=== PATIENT | female | born 1940 | race Caucasian/White ===

== ENCOUNTER 2021-04-07 13:12 | Inpatient (IN) | payer MEDICARE ==
[~2021-04-07] VITALS: Ht 152.4 cm; Wt 64.1 kg
--- NOTE | 2021-04-07 13:41 | PHYS DOC ---
Past Medical History Past Medical History: Hypertension Past Surgical History: No Surgical History Smoking Status: Never Smoker Alcohol Use: None Drug Use: None General Adult EDM: Chief Complaint: ALTERED MENTAL STATUS HPI: HPI: 81-year-old female with a history of hypertension presents the emergency department complaining of an episode about 90 minutes prior where she was shopping with her family and then she was unable to speak. She describes her symptoms as being unable to get all the words out that she wanted to say. She states that this spontaneously resolved after about 10 minutes and now she feels normal. She never had any weakness, sensory changes or other preceding symptoms. She further denies any recent illness or weakness. She has never had this happen before. She recently had her losartan changed by her primary care physician. She notes that now she is able to talk normally. Her son was with her during this event and reports the patient was having trouble speaking as the patient states. He believes that now the patient is back to her baseline. The patient denies nausea, vomiting, fever, chills, chest pain, shortness of breath, abdominal pain, urinary symptoms, cough, recent trauma, or any other complaints. She is not taking any blood thinning medicines. She does not take a aspirin at home. Heart Score: C/O Chest Pain: No Family History: Family History: Noncontributory Allergies: Allergies: Penicillins Physical Exam: PE: General: Alert and oriented, No acute distress. Eye: Pupils are equal, round and reactive to light, Extraocular movements are intact, Normal conjunctiva. HEENT: Oral mucosa is moist, Normocephalic, Atraumatic. Neck: Supple, Non-tender. Respiratory: Respirations are non-labored, symmetrical expansion. Cardiovascular: Normal rate, Good pulses equal in all extremities, Normal peripheral perfusion. Capillary refill: Less than 2 seconds. Integumentary: Warm, Dry, Intact, No pallor. Neurologic: Orientation: The patient is alert and oriented to person, place, time, and situation. Following commands, speech is fluent, intact comprehension. Cranial Nerves: 2nd: normal; Visual jarrett are full to confrontation. Pupils are equal, round and reactive to light and accommodation. 3rd, 4th & 6th: Extraocular movements are intact without nystagmus. 5th: normal; intact muscles of mastication. Intact to light touch. 7th: normal; no facial asymmetry 8th: normal 9th and 10th: normal; Uvula midline. 11th: normal; Shoulder shrug is symmetric 12th: normal; tongue is midline. Strength: Motor strength is 5/5 in the upper and lower extremities bilaterally. Normal bulk and tone in all four limbs without any evidence of an arm drift. Sensory: Intact to light touch in upper extremities and lower extremities bilaterally. Coordination is intact iorpox-[id number]-expu, fine finger movements, rapidly alternating movements, heel to valle. Psychiatric: Cooperative, Appropriate mood & affect. Current Patient Data: Labs: Laboratory Tests Test 04/07/21 13:23 Glucose (Fingerstick) 118 mg/dL (70-99) H Vital Signs: Vital Signs Date Time Temp Pulse Resp B/P (MAP) Pulse Ox O2 Delivery O2 Flow Rate FiO2 04/07/21 14:09 98 16 171/85 (113) 98 Room Air 04/07/21 14:05 91 171/84 04/07/21 13:52 109 16 210/82 (124) 97 Room Air 04/07/21 13:32 97.9 112 16 215/95 (135) 97 Room Air 97.9 EKG: EKG: Time read: 1404 Normal sinus rhythm rate of 96, no ST-T wave changes, no ectopic beats, normal axis, normal SC, QRS, and QTc intervals. Impression: Normal EKG. interpreted by me, Fannie Moya D.O. Radiology/Procedures: Radiology/Procedures: PROCEDURE: PORTABLE CHEST 1V XR CHEST 1V History: Reason: problems with speech / Spl. Instructions: / History: Comparison: None. Findings: Low lung volumes. Mild ill-defined bibasilar opacities. No consolidation or pleural effusion. Normal heart size. No pneumothorax. Left shoulder arthroplasty. Impression: 1. Low lung volumes with mild bibasilar atelectasis. Electronically signed by: Davion Moffett DO (04/07/2021 1:58 PM) CT STROKE HEAD W/O Date: 04/07/2021 2:15 PM Clinical Indication: tia symptoms, DYSPHASIA, SLURRED Comparison: None. Technique: 5 mm axial tomographic images were obtained of the head without contrast. These were viewed on brain and bone windows. One or more of the following dose reduction techniques were utilized: Automated exposure control (AEC), Adjustment of mA and/or kV according to patient size, Use of iterative reconstruction technique such as ASiR, CT scan done according to ALARA and image gently/image wisely Findings: The brain parenchyma is normal in attenuation Mild nonspecific periventricular hypoattenuation is most consistent with chronic small vessel ischemic disease. Age-indeterminate left thalamic lacunar infarct. No intra- or extra-axial mass or fluid collection. No acute hemorrhage. The ventricles are normal in size, shape, and morphology. The palmer-white matter junction is normal. The subarachnoid cisterns are patent. The visualized paranasal sinuses are normal. The visualized portions of the orbits and globes are normal. Right mastoid fluid. The fashion adviser topogram shows no lytic lesion or fracture. Impression: 1. No acute hemorrhage or large territory palmer-white loss. 2. Age indeterminate left thalamic lacunar infarct. No priors for comparison. EXAM: CTA HEAD AND NECK W/WO CONTRAST DATE: 04/07/2021 2:27 PM INDICATION: tia symptoms TECHNIQUE: CTA angiogram of the head and neck was obtained after IV bolus administration of 75 cc of Omnipaque 300. The images were sent to workstation and multiplanar reconstructions were obtained. Multiplanar reconstruction images to include MIP and 3-D reconstruction images are submitted. One or more of the following dose reduction techniques were utilized: Automated exposure control (AEC), Adjustment of mA and/or kV according to patient size, Use of iterative reconstruction technique such as ASiR, CT scan done according to ALARA and image gently/image wisely COMPARISON: Noncontrast CT head done earlier the same day. FINDINGS: CTA Head: The visualized distal internal carotid arteries, anterior and middle cerebral arteries are patent and normal caliber. The distal vertebral arteries, basilar artery, and posterior cerebral arteries are patent and normal caliber. No aneurysm or arteriovenous malformation is seen. CTA Neck: Right carotid: The right common carotid artery is patent and normal caliber. The carotid bifurcation is normal. No stenosis of the right internal carotid artery per NASCET criteria. The right external carotid artery is patent. Left carotid: The left common carotid artery is patent and normal caliber. The carotid bifurcation is normal. No stenosis of the left internal carotid artery per NASCET criteria. The left external carotid artery is patent. Right vertebral: The right vertebral artery is patent and normal caliber. Left vertebral: The left vertebral artery is patent and normal caliber. The visualized portions of the aortic arch are normal. The origins of the brachiocephalic and subclavian arteries are normal. No cervical lymphadenopathy. Corrected 1.3 cm nodule, not requiring further evaluation based on size criteria. The parotid and submandibular glands are normal. The visualized aerodigestive tract is unremarkable. Mild multilevel degenerative disc height loss. Multilevel disc protrusions and marginal osteophytes results in multilevel spinal canal stenosis. Multilevel uncovertebral and facet arthrosis with multilevel neural foraminal narrowing. The visualized portions of the lungs are clear. IMPRESSION: 1. No intracranial large vessel occlusion. 2. No stenosis of the cervical carotid or vertebral arteries. Course & Med Decision Making: Course & Med Decision Making Patient was seen after history suggestive of TIA. Her CT scan was unremarkable and then she was sent for angiography study of the head and neck, which was also unremarkable and there is no evidence of large vessel occlusion. I discussed the case with Dr. Manzano from neurology, who has evaluated the patient in the emergency department. Believes likely TIA, hypertensive encephalopathy. Patient was given labetalol for her hypertension, after this met her heart rate was 88, blood pressure is 171/84. She had no focal neurological findings on her exam today. Her NIH score was 0. She is not a TPA candidate at this time. She was admitted to the hospitalist service under Dr. Choudhury for further care and further imaging. ASA 325 mg given. Departure Departure Impression: Primary Impression: TIA (transient ischemic attack) Additional Impression: Hypertensive urgency Disposition: ADMITTED INPATIENT Condition: STABLE FANNIE MOYA DO Apr 07, 2021 13:41
[2021-04-07 13:49] LABS: BASO % 1 % (0-3); EOS % 1 % (0-3); HEMATOCRIT 42.4 % (36.0-47.0); HEMOGLOBIN 14.2 g/dL (12.0-15.5); LYMPH # 2.1 x10^3/uL (1.0-4.8); LYMPH % 28 % (24-48); MEAN CORPUSCULAR HEMOGLOBIN 30 pg (25-35); MEAN CORPUSCULAR HGB CONC 34 g/dL (31-37); MEAN CORPUSCULAR VOLUME 88 fL (79-100); MONO # 0.3 x10^3/uL (0.0-1.1); MONO % 4 % (0-9); NEUT % 66 % (31-73); PLATELET COUNT 252 x10^3/uL (140-400); RED CELL DISTRIBUTION WIDTH 13.9 % (11.5-14.5); WHITE BLOOD COUNT 7.5 x10^3/uL (4.0-11.0)
[2021-04-07 13:57] LABS: CREATININE 0.9 mg/dL (0.6-1.0); GFR 59.8; POTASSIUM 3.7 mmol/L (3.5-5.1)
[2021-04-07] MEDS ORDERED: ASPIRIN RECTAL 300 MG SUPP. PR PRN (14:00)
[2021-04-07] MEDS ORDERED: ACETAMINOPHEN 325 MG TABLET. PO PRN ×2 (14:00→17:30)
[2021-04-07] MEDS ORDERED: LABETALOL 20 MG/4 ML DISP.SYRIN. IVP ONE (14:00)
[2021-04-07] MEDS ORDERED: LABETALOL 20 MG/4 ML DISP.SYRIN. IVP PRN (14:00)
--- NOTE | 2021-04-07 14:00 | PDOC2 ---
NEUROLOGY CONSULT Date of Service DOS: DATE: 04/07/21 TIME: 13:56 Reason for Consult Reason for Consult: Transient ischemic attack Referring Physician Referring Physician: Hospitalist service Source Source: Caregiver (Son), Chart review, Patient History of Present Illness History of Present Illness The patient is an 81-year-old right-handed female who shortly before 12 noon today was shopping with her [id number] and noticed that she could not get her words out. The symptoms lasted about 10 minutes. Blood pressure was elevated at home so the patient was brought in the emergency department were systolic blood pressure was above 200. Patient likes to check her blood pressure once or twice a day every day and it has not been this high before. She says it 3 weeks ago she had some neck pain and dizziness and had acupuncture done and the symptoms resolved. There is no history of migraines and she did not have a headache today. Patient and son agree that she is back to her normal self although blood pressure remains elevated. She took aspirin several years ago but it caused bruising and she stopped it. Past Medical History Cardiovascular: HTN Past Surgical History Past Surgical History: No pertinent history Family History Family History: Other (Alzheimer's, heart failure) Social History Social History , lives with son and eoejsvlg-pf-vgw, occasional alcohol, no tobacco Current Medications Current Medications Current Medications Labetalol HCl (Normodyne Iv Push) 10 mg 1X ONCE IVP ; Start 04/07/21 at 14:00; Stop 04/07/21 at 14:01 Allergies Allergies: Coded Allergies: Penicillins (Verified Allergy, Intermediate, 04/07/21) ROS Review of System Negative for fever, chills, weight loss, shortness of breath, chest pain, indigestion, hematochezia, melena, and dysuria. Full 14-point review of systems is negative. Physical Exam Physical Examination General: Well-developed, well-nourished, white female, in no acute distress HEENT: Normocephalic andatraumatic. Temporal arteriespulsatile and nontender. Neck: Supple without bruit, no meningismus Musculoskeletal: Stability:see neurologic. Gait exam:see neurologic. Tone:see neurologic.Strength:see neurologic. Neurological: Mental Status:intact, orientation, memory, attention span/concentration, language, fund of knowledge normal. Cranial Nerves:Pupils equal and reactive to light, extraocular movements areintact, visual jarrett are full to confrontation. Facial sensation is normal. There is no facial asymmetry. Vestibulo-ocular reflex is intact. Palate elevates and tongue protrudes in midli ne. All other cranial related problems are negative except as mentioned before.Reflexes:2+ and symmetric with flexor plantar responses. Motor:5/5 strength with normal tone and bulk. Coordination:Finger-nose finger and hqwo-fl-pxre testing are normal. Rapid alternating movements and fine finger movements are intact. Gait:Normal, including tandem. Sensory:Normal pinprick, vibration, light touch, proprioception. Vitals VITALS Vital Signs Date Time Temp Pulse Resp B/P (MAP) Pulse Ox O2 Delivery O2 Flow Rate FiO2 04/07/21 13:52 109 16 210/82 (124) 97 Room Air 04/07/21 13:32 97.9 97.9 Labs Labs Laboratory Tests Test 04/07/21 13:23 04/07/21 13:35 Glucose (Fingerstick) 118 mg/dL (70-99) White Blood Count 7.5 x10^3/uL (4.0-11.0) Red Blood Count 4.80 x10^6/uL (3.50-5.40) Hemoglobin 14.2 g/dL (12.0-15.5) Hematocrit 42.4 % (36.0-47.0) Mean Corpuscular Volume 88 fL (79-100) Mean Corpuscular Hemoglobin 30 pg (25-35) Mean Corpuscular Hemoglobin Concent 34 g/dL (31-37) Red Cell Distribution Width 13.9 % (11.5-14.5) Platelet Count 252 x10^3/uL (140-400) Neutrophils (%) (Auto) 66 % (31-73) Lymphocytes (%) (Auto) 28 % (24-48) Monocytes (%) (Auto) 4 % (0-9) Eosinophils (%) (Auto) 1 % (0-3) Basophils (%) (Auto) 1 % (0-3) Neutrophils # (Auto) 5.0 x10^3/uL (1.8-7.7) Lymphocytes # (Auto) 2.1 x10^3/uL (1.0-4.8) Monocytes # (Auto) 0.3 x10^3/uL (0.0-1.1) Eosinophils # (Auto) 0.0 x10^3/uL (0.0-0.7) Basophils # (Auto) 0.0 x10^3/uL (0.0-0.2) Laboratory Tests Test 04/07/21 13:23 04/07/21 13:35 Glucose (Fingerstick) 118 mg/dL (70-99) White Blood Count 7.5 x10^3/uL (4.0-11.0) Red Blood Count 4.80 x10^6/uL (3.50-5.40) Hemoglobin 14.2 g/dL (12.0-15.5) Hematocrit 42.4 % (36.0-47.0) Mean Corpuscular Volume 88 fL (79-100) Mean Corpuscular Hemoglobin 30 pg (25-35) Mean Corpuscular Hemoglobin Concent 34 g/dL (31-37) Red Cell Distribution Width 13.9 % (11.5-14.5) Platelet Count 252 x10^3/uL (140-400) Neutrophils (%) (Auto) 66 % (31-73) Lymphocytes (%) (Auto) 28 % (24-48) Monocytes (%) (Auto) 4 % (0-9) Eosinophils (%) (Auto) 1 % (0-3) Basophils (%) (Auto) 1 % (0-3) Neutrophils # (Auto) 5.0 x10^3/uL (1.8-7.7) Lymphocytes # (Auto) 2.1 x10^3/uL (1.0-4.8) Monocytes # (Auto) 0.3 x10^3/uL (0.0-1.1) Eosinophils # (Auto) 0.0 x10^3/uL (0.0-0.7) Basophils # (Auto) 0.0 x10^3/uL (0.0-0.2) Assessment/Plan Assessment/Plan Impression: Transient ischemic attack symptoms most likely representing hypertensive encephalopathy, normal exam now. Not a candidate for alteplase given the normal exam and resolution of symptoms so rapidly. Recommendations: Check lipids Blood pressure control per stroke pathway parameters at least at first Await CT head and CT angiogram Aspirin Statin Rehab screening Also see stroke orders Discussed with patient, son Discussed with Dr. Moya Thank you for let me help with the patient's care. BLANCA HERNANDEZ MD Apr 07, 2021 14:00
--- NOTE | 2021-04-07 14:00 | RAD ---
XR CHEST 1V History: Reason: problems with speech / Spl. Instructions: / History: Comparison: None. Findings: Low lung volumes. Mild ill-defined bibasilar opacities. No consolidation or pleural effusion. Normal heart size. No pneumothorax. Left shoulder arthroplasty. Impression: 1. Low lung volumes with mild bibasilar atelectasis. Electronically signed by: Davion Moffett DO (04/07/2021 1:58 PM) [facility]
[2021-04-07] MEDS ORDERED: CONTRAST GIVEN. MC PRN (14:15)
[2021-04-07] MEDS ORDERED: IOHEXOL 300 MG/ML 100ML VIAL. IV ONE (14:15)
[2021-04-07] MEDS ORDERED: ASPIRIN 325 MG TABLET PO ONE (14:30)
--- NOTE | 2021-04-07 14:32 | RAD ---
CT STROKE HEAD W/O Date: 04/07/2021 2:15 PM Clinical Indication: tia symptoms, DYSPHASIA, SLURRED Comparison: None. Technique: 5 mm axial tomographic images were obtained of the head without contrast. These were view ed on brain and bone windows. One or more of the following dose reduction techniques were utilized: A utomated exposure control (AEC), Adjustment of mA and/or kV according to patient size, Use of iterati ve reconstruction technique such as ASiR, CT scan done according to ALARA and image gently/image [place] ly Findings: The brain parenchyma is normal in attenuation Mild nonspecific periventricular hypoattenuation is mos t consistent with chronic small vessel ischemic disease. Age-indeterminate left thalamic lacunar infa rct. No intra- or extra-axial mass or fluid collection. No acute hemorrhage. The ventricles are dru l in size, shape, and morphology. The palmer-white matter junction is normal. The subarachnoid cisterns are patent. The visualized paranasal sinuses are normal. The visualized portions of the orbits and globes are no rmal. Right mastoid fluid. The program instructor topogram shows no lytic lesion or fracture. Impression: 1. No acute hemorrhage or large territory palmer-white loss. 2. Age indeterminate left thalamic lacunar infarct. No priors for comparison. FOR INTERNAL CODING PURPOSES Critical result: Findings discussed with Dr. Moya at 04/07/2021 2:29 PM. RESULT CODE: (C) Electronically signed by: Basilio Mckeon MD (04/07/2021 2:30 PM) [facility]
--- NOTE | 2021-04-07 14:37 | RAD ---
EXAM: CTA HEAD AND NECK W/WO CONTRAST DATE: 04/07/2021 2:27 PM INDICATION: tia symptoms TECHNIQUE: CTA angiogram of the head and neck was obtained after IV bolus administration of 75 cc of Omnipaque 300. The images were sent to workstation and multiplanar reconstructions were obtained. Mu ltiplanar reconstruction images to include MIP and 3-D reconstruction images are submitted. One or more of the following dose reduction techniques were utilized: Automated exposure control (AEC ), Adjustment of mA and/or kV according to patient size, Use of iterative reconstruction technique means ch as ASiR, CT scan done according to ALARA and image gently/image wisely COMPARISON: Noncontrast CT head done earlier the same day. FINDINGS: CTA Head: The visualized distal internal carotid arteries, anterior and middle cerebral arteries are patent and normal caliber. The distal vertebral arteries, basilar artery, and posterior cerebral arteries are p atent and normal caliber. No aneurysm or arteriovenous malformation is seen. CTA Neck: Right carotid: The right common carotid artery is patent and normal caliber. The carotid bifurcation is normal. No stenosis of the right internal carotid artery per NASCET criteria. The right external c arotid artery is patent. Left carotid: The left common carotid artery is patent and normal caliber. The carotid bifurcation is normal. No stenosis of the left internal carotid artery per NASCET criteria. The left external carot id artery is patent. Right vertebral: The right vertebral artery is patent and normal caliber. Left vertebral: The left vertebral artery is patent and normal caliber. The visualized portions of the aortic arch are normal. The origins of the brachiocephalic and subclav magalys arteries are normal. No cervical lymphadenopathy. Corrected 1.3 cm nodule, not requiring further evaluation based on size criteria. The parotid and submandibular glands are normal. The visualized aerodigestive tract is unre markable. Mild multilevel degenerative disc height loss. Multilevel disc protrusions and marginal osteophytes r esults in multilevel spinal canal stenosis. Multilevel uncovertebral and facet arthrosis with multile victor hugo neural foraminal narrowing. The visualized portions of the lungs are clear. IMPRESSION: 1. No intracranial large vessel occlusion. 2. No stenosis of the cervical carotid or vertebral arteries. FOR INTERNAL CODING PURPOSES Critical result: Findings discussed with Dr. Moya at 04/07/2021 2:33 PM. RESULT CODE: (C) PQRS Compliance Statement - Stenosis calculations for CT, MR and conventional angiography are based u ponce measurement of the distal ICA diameter in accordance with the NASCET methodology. Electronically signed by: Basilio Mckeon MD (04/07/2021 2:34 PM) [facility]
[2021-04-07] MEDS ORDERED: ONDANSETRON PF 4 MG/2 ML VIAL. IVP PRN ×2 (14:45→17:30)
[2021-04-07 15:00] LABS: CHOLESTEROL/HDL RATIO 3.1
[2021-04-07 16:20] VITALS: BP 188/51
--- NOTE | 2021-04-07 17:18 | PDOC1 ---
History and Physical Date of Service: DOS: DATE: 04/07/21 TIME: 17:13 Chief Complaint: Chief Complain: Difficulty speaking History of Present Illness: HPI: History obtained from discussion with the ED physician and chart review: 81-year-old female with a history of hypertension presents the emergency department complaining of an episode about 90 minutes prior where she was shopping with her family and then she was unable to speak. She describes her symptoms as being unable to get all the words out that she wanted to say. She states that this spontaneously resolved after about 10 minutes and now she feels normal. She never had any weakness, sensory changes or other preceding symptoms. She further denies any recent illness or weakness. She has never had this happen before. She recently had her losartan changed by her primary care physician. She notes that now she is able to talk normally. Her son was with her during this event and reports the patient was having trouble speaking as the patient states. He believes that now the patient is back to her baseline. The patient denies nausea, vomiting, fever, chills, chest pain, shortness of breath, abdominal pain, urinary symptoms, cough, recent trauma, or any other complaints. She is not taking any blood thinning medicines. She does not take a aspirin at ho Past Medical/Surgical History: PMH/PSH: Past Medical History: Hypertension Past Surgical History: No Surgical History Allergies: Allergies: Coded Allergies: Penicillins (Verified Allergy, Intermediate, 04/07/21) Family History: Family History: Reviewed with no relevant findings Social History: Social History: Smoking Status: Never Smoker Alcohol Use: None Drug Use: None Current Medications: Current Medications Current Medications Labetalol HCl (Normodyne Iv Push) 10 mg 1X ONCE IVP Last administered on 04/07/21at 14:05; Start 04/07/21 at 14:00; Stop 04/07/21 at 14:01; Status DC Labetalol HCl (Normodyne Iv Push) 10 mg PRN Q10MIN PRN IVP ELEVATED BP, SEE COMMENTS; Start 04/07/21 at 14:00 Atorvastatin Calcium (Lipitor) 80 mg QHS PO ; Start 04/07/21 at 21:00 Acetaminophen (Tylenol) 650 mg PRN Q6HRS PRN PO MILD PAIN / TEMP > 100.3'F; Start 04/07/21 at 14:00 Aspirin (Ecotrin) 325 mg DAILYWBKFT PO ; Start 04/07/21 at 14:30 Aspirin (Aspirin Rectal Supp) 300 mg PRN DAILY PRN WI IF UNABLE TO TAKE PO; Start 04/07/21 at 14:00 Iohexol (Omnipaque 300 Mg/ml) 70 ml 1X ONCE IV Last administered on 04/07/21at 14:28; Start 04/07/21 at 14:15; Stop 04/07/21 at 14:16; Status DC Info (CONTRAST GIVEN -- Rx MONITORING) 1 each PRN DAILY PRN MC SEE COMMENTS; Start 04/07/21 at 14:15; Stop 04/09/21 at 14:14 Aspirin ([place]nn Aspirin) 325 mg 1X ONCE PO ; Start 04/07/21 at 14:30; Stop 04/07/21 at 14:31; Status UNV Ondansetron HCl (Zofran) 4 mg PRN Q8HRS PRN IVP NAUSEA/VOMITING; Start 04/07/21 at 14:45; Stop 04/08/21 at 14:44 ROS: Review of Systems Review of System REVIEW OF SYSTEMS: GENERAL: Denies weakness SKIN: No bruising, hair changes or rashes. EYES: No blurred, double or loss of vision. NOSE AND THROAT: No history of nosebleeds, hoarseness or sore throat. HEART: No history of palpitations, chest pain or shortness of breath on exertion. LUNGS: Denies cough, hemoptysis, wheezing or shortness of breath. GASTROINTESTINAL: Denies changes in appetite, nausea, vomiting, diarrhea or constipation. GENITOURINARY: No history of frequency, urgency, hesitancy or nocturia. NEUROLOGIC: Denies history of numbness, tingling, or tremor. PSYCHIATRIC: No history of panic, anxiety or depression. ENDOCRINE: No history of heat or cold intolerance, polyuria or polydipsia. EXTREMITIES: Denies joint pain, pain on walking or stiffness. Physical Exam: Vital Signs: Vital Signs Date Time Temp Pulse Resp B/P (MAP) Pulse Ox O2 Delivery O2 Flow Rate FiO2 04/07/21 15:57 97.9 76 24 160/74 (102) 97 Room Air 97.9 Physcial Exam: General: Well developed, well nourished, no acute distress, well appearing HEENT: Pupils equally round and reactive to light, EOMI, no discharge, normal conjunctiva Neck: Supple, no nuchal rigidity, no JVD, trachea midline, no tenderness Cardiac: RRR, no murmurs, no gallops, no rubs Chest/Lungs: CTAB, no wheeze, no rhonchi, no crackles Abdomen: soft, non-distended, no guarding, no peritoneal signs, non-tender Back: No tenderness Extremities: no edema, pulses intact, non-tender,capillary refill <3 sec bilateral upper and lower extremities, Neuro: Alert and oriented x 4, no focal deficits, normal speech Labs: Labs: Laboratory Tests Test 04/07/21 13:23 04/07/21 13:35 Glucose (Fingerstick) 118 mg/dL (70-99) White Blood Count 7.5 x10^3/uL (4.0-11.0) Red Blood Count 4.80 x10^6/uL (3.50-5.40) Hemoglobin 14.2 g/dL (12.0-15.5) Hematocrit 42.4 % (36.0-47.0) Mean Corpuscular Volume 88 fL (79-100) Mean Corpuscular Hemoglobin 30 pg (25-35) Mean Corpuscular Hemoglobin Concent 34 g/dL (31-37) Red Cell Distribution Width 13.9 % (11.5-14.5) Platelet Count 252 x10^3/uL (140-400) Neutrophils (%) (Auto) 66 % (31-73) Lymphocytes (%) (Auto) 28 % (24-48) Monocytes (%) (Auto) 4 % (0-9) Eosinophils (%) (Auto) 1 % (0-3) Basophils (%) (Auto) 1 % (0-3) Neutrophils # (Auto) 5.0 x10^3/uL (1.8-7.7) Lymphocytes # (Auto) 2.1 x10^3/uL (1.0-4.8) Monocytes # (Auto) 0.3 x10^3/uL (0.0-1.1) Eosinophils # (Auto) 0.0 x10^3/uL (0.0-0.7) Basophils # (Auto) 0.0 x10^3/uL (0.0-0.2) Sodium Level 143 mmol/L (136-145) Potassium Level 3.7 mmol/L (3.5-5.1) Chloride Level 105 mmol/L (98-107) Carbon Dioxide Level 29 mmol/L (21-32) Anion Gap 9 (6-14) Blood Urea Nitrogen 14 mg/dL (7-20) Creatinine 0.9 mg/dL (0.6-1.0) Estimated GFR (Cockcroft-Gault) 59.8 Glucose Level 135 mg/dL (70-99) Calcium Level 9.0 mg/dL (8.5-10.1) Triglycerides Level 143 mg/dL (0-150) Cholesterol Level 258 mg/dL (0-200) LDL Cholesterol, Calculated 146 mg/dL (0-100) VLDL Cholesterol, Calculated 29 mg/dL (0-40) Non-HDL Cholesterol Calculated 175 mg/dL (0-129) HDL Cholesterol 83 mg/dL (40-60) Cholesterol/HDL Ratio 3.1 Laboratory Tests Test 04/07/21 13:23 04/07/21 13:35 Glucose (Fingerstick) 118 mg/dL (70-99) White Blood Count 7.5 x10^3/uL (4.0-11.0) Red Blood Count 4.80 x10^6/uL (3.50-5.40) Hemoglobin 14.2 g/dL (12.0-15.5) Hematocrit 42.4 % (36.0-47.0) Mean Corpuscular Volume 88 fL (79-100) Mean Corpuscular Hemoglobin 30 pg (25-35) Mean Corpuscular Hemoglobin Concent 34 g/dL (31-37) Red Cell Distribution Width 13.9 % (11.5-14.5) Platelet Count 252 x10^3/uL (140-400) Neutrophils (%) (Auto) 66 % (31-73) Lymphocytes (%) (Auto) 28 % (24-48) Monocytes (%) (Auto) 4 % (0-9) Eosinophils (%) (Auto) 1 % (0-3) Basophils (%) (Auto) 1 % (0-3) Neutrophils # (Auto) 5.0 x10^3/uL (1.8-7.7) Lymphocytes # (Auto) 2.1 x10^3/uL (1.0-4.8) Monocytes # (Auto) 0.3 x10^3/uL (0.0-1.1) Eosinophils # (Auto) 0.0 x10^3/uL (0.0-0.7) Basophils # (Auto) 0.0 x10^3/uL (0.0-0.2) Sodium Level 143 mmol/L (136-145) Potassium Level 3.7 mmol/L (3.5-5.1) Chloride Level 105 mmol/L (98-107) Carbon Dioxide Level 29 mmol/L (21-32) Anion Gap 9 (6-14) Blood Urea Nitrogen 14 mg/dL (7-20) Creatinine 0.9 mg/dL (0.6-1.0) Estimated GFR (Cockcroft-Gault) 59.8 Glucose Level 135 mg/dL (70-99) Calcium Level 9.0 mg/dL (8.5-10.1) Triglycerides Level 143 mg/dL (0-150) Cholesterol Level 258 mg/dL (0-200) LDL Cholesterol, Calculated 146 mg/dL (0-100) VLDL Cholesterol, Calculated 29 mg/dL (0-40) Non-HDL Cholesterol Calculated 175 mg/dL (0-129) HDL Cholesterol 83 mg/dL (40-60) Cholesterol/HDL Ratio 3.1 Images: Images PROCEDURE: PORTABLE CHEST 1V XR CHEST 1V History: Reason: problems with speech / Spl. Instructions: / History: Comparison: None. Findings: Low lung volumes. Mild ill-defined bibasilar opacities. No consolidation or pleural effusion. Normal heart size. No pneumothorax. Left shoulder arthroplasty. Impression: 1. Low lung volumes with mild bibasilar atelectasis. PROCEDURE: CT CODE STROKE HEAD WO CT STROKE HEAD W/O Date: 04/07/2021 2:15 PM Clinical Indication: tia symptoms, DYSPHASIA, SLURRED Comparison: None. Technique: 5 mm axial tomographic images were obtained of the head without c ontrast. These were viewed on brain and bone windows. One or more of the following dose reduction techniques were utilized: Automated exposure control (AEC), Adjustment of mA and/or kV according to patient size, Use of iterative reconstruction technique such as ASiR, CT scan done according to ALARA and image gently/image wisely Findings: The brain parenchyma is normal in attenuation Mild nonspecific periventricular hypoattenuation is most consistent with chronic small vessel ischemic disease. Age-indeterminate left thalamic lacunar infarct. No intra- or extra-axial mass or fluid collection. No acute hemorrhage. The ventricles are normal in size, shape, and morphology. The palmer-white matter junction is normal. The subarachnoid cisterns are patent. The visualized paranasal sinuses are normal. The visualized portions of the orbits and globes are normal. Right mastoid fluid. The water conservation specialist topogram shows no lytic lesion or fracture. Impression: 1. No acute hemorrhage or large territory palmer-white loss. 2. Age indeterminate left thalamic lacunar infarct. No priors for comparison. PROCEDURE: CT ANGIOGRAPHY HEAD AND NECK EXAM: CTA HEAD AND NECK W/WO CONTRAST DATE: 04/07/2021 2:27 PM INDICATION: tia symptoms TECHNIQUE: CTA angiogram of the head and neck was obtained after IV bolus administration of 75 cc of Omnipaque 300. The images were sent to workstation and multiplanar reconstructions were obtained. Multiplanar reconstruction images to include MIP and 3-D reconstruction images are submitted. One or more of the following dose reduction techniques were utilized: Automated exposure control (AEC), Adjustment of mA and/or kV according to patient size, Use of iterative reconstruction technique such as ASiR, CT scan done according to ALARA and image gently/image wisely COMPARISON: Noncontrast CT head done earlier the same day. FINDINGS: CTA Head: The visualized distal internal carotid arteries, anterior and middle cerebral arteries are patent and normal caliber. The distal vertebral arteries, basilar artery, and posterior cerebral arteries are patent and normal caliber. No aneurysm or arteriovenous malformation is seen. CTA Neck: Right carotid: The right common carotid artery is patent and normal caliber. The carotid bifurcation is normal. No stenosis of the right internal carotid artery per NASCET criteria. The right external carotid artery is patent. Left carotid: The left common carotid artery is patent and normal caliber. The carotid bifurcation is normal. No stenosis of the left internal carotid artery per NASCET criteria. The left external carotid artery is patent. Right vertebral: The right vertebral artery is patent and normal caliber. Left vertebral: The left vertebral artery is patent and normal caliber. The visualized portions of the aortic arch are normal. The origins of the brachiocephalic and subclavian arteries are normal. No cervical lymphadenopathy. Corrected 1.3 cm nodule, not requiring further evaluation based on size criteria. The parotid and submandibular glands are normal. The visualized aerodigestive tract is unremarkable. Mild multilevel degenerative disc height loss. Multilevel disc protrusions and marginal osteophytes results in multilevel spinal canal stenosis. Multilevel uncovertebral and facet arthrosis with multilevel neural foraminal narrowing. The visualized portions of the lungs are clear. IMPRESSION: 1. No intracranial large vessel occlusion. 2. No stenosis of the cervical carotid or vertebral arteries. Assessment/Plan Assessment/Plan Acute TIA Possible left thalamic lacunar infarct, unknown chronicity Acute hypertensive encephalopathy Hypertensive crisis Dyslipidemia History of hypertension Admit to hospitalist service for further management Neurology consult for stroke work-up PT OT and speech modalities continue telemonitoring for at least 24 hours contine IVF while NPO maintain normoglycemia with goals of 140-180 permissive HTN with goals between 140-180/90-105 for at least 24 hours if tPA administered, maintain BP goals < 180/105 for at least 24 hours continue ASA 81 daily within 48 hours continue high intensity statins In addition to my E/M visit, advance care planning done with A total time of 20 minutes was spent from 4:00 PM to 4:20 PM face to face in discussion regarding the patient's goals of care, CODE STATUS. Justifications for Admission TIA Indications Hemodynamically unstable?: Yes Persistent neurologic signs?: No Cardiomyopathy/Valvular diseas: No Severe hypertension?: Yes Cardiac arrhythmia?: No Other Justification ROLANDA ESPINAL MD Apr 07, 2021 17:18
[2021-04-07] MEDS ORDERED: PROCHLORPERAZINE 10 MG/2 ML VIAL. IV PRN (17:30)
[2021-04-07] MEDS ORDERED: DOCUSATE SODIUM 100 MG CAPSULE. PO PRN (17:30)
[2021-04-07] MEDS ORDERED: ZOLPIDEM 5 MG TABLET. PO PRN (17:30)
[2021-04-07] MEDS ORDERED: LORazepam 0.5 MG TABLET PO PRN (17:30)
[2021-04-07] MEDS ORDERED: SENNOSIDES 8.6 MG TABLET PO PRN (17:30)
[2021-04-07] MEDS ORDERED: DEXTROSE 50% 25 GM / 50ML DISP.SYRIN. IV PRN (17:30)
[2021-04-07] MEDS: ASPIRIN ENTERIC COATED 325 MG TABLET.DR. PO SCH (18:13)
[2021-04-07 19:00] VITALS: BP 175/74
[2021-04-07] MEDS ORDERED: LOSA25TA54 PO (19:12)
[2021-04-07] MEDS: ATORVASTATIN CALCIUM 40 MG TABLET. PO SCH (20:29)
[2021-04-07 22:39] VITALS: BP 190/86
--- NOTE | 2021-04-07 23:58 | EKG ---
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
[2021-04-08] VITALS (7 sets, daily range): BP systolic 144–214; BP diastolic 68–95
[2021-04-08 04:46] LABS: BASO % 1 % (0-3); EOS # 0.1 x10^3/uL (0.0-0.7); EOS % 2 % (0-3); HEMOGLOBIN 12.9 g/dL (12.0-15.5); LYMPH # 1.8 x10^3/uL (1.0-4.8); LYMPH % 26 % (24-48); MEAN CORPUSCULAR HEMOGLOBIN 29 pg (25-35); MEAN CORPUSCULAR HGB CONC 33 g/dL (31-37); MEAN CORPUSCULAR VOLUME 88 fL (79-100); MONO # 0.5 x10^3/uL (0.0-1.1); MONO % 7 % (0-9); NEUT # 4.5 x10^3/uL (1.8-7.7); NEUT % 66 % (31-73); PLATELET COUNT 220 x10^3/uL (140-400); RED BLOOD COUNT 4.41 x10^6/uL (3.50-5.40); WHITE BLOOD COUNT 6.8 x10^3/uL (4.0-11.0)
[2021-04-08 04:55] LABS: CALCIUM 8.6 mg/dL (8.5-10.1); CREATININE 0.7 mg/dL (0.6-1.0); GFR 79.9; MAGNESIUM 1.5 mg/dL (1.8-2.4); PHOSPHORUS 4.1 mg/dL (2.6-4.7); POTASSIUM 3.5 mmol/L (3.5-5.1)
[2021-04-08] MEDS: ASPIRIN ENTERIC COATED 325 MG TABLET.DR. PO SCH (08:03)
[2021-04-08] MEDS: LOSARTAN POTASSIUM 50 MG TABLET. PO SCH ×2 (09:22→20:28)
--- NOTE | 2021-04-08 10:53 | PDOC ---
[facility] PROGRESS NOTE Date of Service DOS: DATE: 04/08/21 TIME: 10:50 Chief Complaint Chief Complaint Assessment/Plan Acute TIA Possible left thalamic lacunar infarct, unknown chronicity Acute hypertensive encephalopathy Hypertensive crisis Dyslipidemia History of hypertension Pending MRI Neurology consult for stroke work-up PT OT and speech modalities continue telemonitoring for at least 24 hours contine IVF while NPO maintain normoglycemia with goals of 140-180 permissive HTN with goals between 140-180/90-105 for at least 24 hours if tPA administered, maintain BP goals < 180/105 for at least 24 hours continue ASA 81 daily within 48 hours continue high intensity statins History of Present Illness History of Present Illness 81-year-old female with a history of hypertension presents the emergency department complaining of an episode about 90 minutes prior where she was shopping with her family and then she was unable to speak. She describes her symptoms as being unable to get all the words out that she wanted to say. She states that this spontaneously resolved after about 10 minutes and now she feels normal. She never had any weakness, sensory changes or other preceding symptoms. She further denies any recent illness or weakness. She has never had this happen before. She recently had her losartan changed by her primary care physician. She notes that now she is able to talk normally. Her son was with her during this event and reports the patient was having trouble speaking as the patient states. He believes that now the patient is back to her baseline. The patient denies nausea, vomiting, fever, chills, chest pain, shortness of breath, abdominal pain, urinary symptoms, cough, recent trauma, or any other complaints. She is not taking any blood thinning medicines. She does not take a aspirin 04/08/2021 No acute events overnight. Patient seen and examined ambulating in the hallways. Working well with physical therapy. Treatment feels back to her baseline. Had discussion with son outside the hallway stating that patient may have early signs of Alzheimer's dementia. I did reviewed the CT images with the son showing that she does have chronic small vessel disease which is likely contributing to her issues at home. These issues include sundowning and some behavioral issues such as agitation and confusion. Pending MRI tomorrow. We will work on controlling blood pressure numbers today. In addition to my E/M visit, advance care planning done with A total time of 20 minutes was spent from 930 to 950 face to face in discussion with the son regarding the patient's goals of care, CODE STATUS. Vitals/I&O Vitals/I&O: Vital Signs Date Time Temp Pulse Resp B/P (MAP) Pulse Ox O2 Delivery O2 Flow Rate FiO2 04/08/21 09:22 70 207/90 04/08/21 08:00 Room Air 04/08/21 07:00 98.1 18 95 98.1 I & O 04/07/21 04/07/21 04/08/21 15:00 23:00 07:00 Intake Total 1000 ml 0 ml Balance 1000 ml 0 ml Physical Exam General: Alert, Oriented X3, Cooperative Heart: Regular rate Lungs: Clear Abdomen: Normal bowel sounds Extremities: No clubbing Skin: No rashes, No breakdown Labs Labs: Laboratory Tests Test 04/07/21 13:23 04/07/21 13:35 04/08/21 03:45 Glucose (Fingerstick) 118 mg/dL (70-99) White Blood Count 7.5 x10^3/uL (4.0-11.0) 6.8 x10^3/uL (4.0-11.0) Red Blood Count 4.80 x10^6/uL (3.50-5.40) 4.41 x10^6/uL (3.50-5.40) Hemoglobin 14.2 g/dL (12.0-15.5) 12.9 g/dL (12.0-15.5) Hematocrit 42.4 % (36.0-47.0) 39.0 % (36.0-47.0) Mean Corpuscular Volume 88 fL (79-100) 88 fL (79-100) Mean Corpuscular Hemoglobin 30 pg (25-35) 29 pg (25-35) Mean Corpuscular Hemoglobin Concent 34 g/dL (31-37) 33 g/dL (31-37) Red Cell Distribution Width 13.9 % (11.5-14.5) 14.0 % (11.5-14.5) Platelet Count 252 x10^3/uL (140-400) 220 x10^3/uL (140-400) Neutrophils (%) (Auto) 66 % (31-73) 66 % (31-73) Lymphocytes (%) (Auto) 28 % (24-48) 26 % (24-48) Monocytes (%) (Auto) 4 % (0-9) 7 % (0-9) Eosinophils (%) (Auto) 1 % (0-3) 2 % (0-3) Basophils (%) (Auto) 1 % (0-3) 1 % (0-3) Neutrophils # (Auto) 5.0 x10^3/uL (1.8-7.7) 4.5 x10^3/uL (1.8-7.7) Lymphocytes # (Auto) 2.1 x10^3/uL (1.0-4.8) 1.8 x10^3/uL (1.0-4.8) Monocytes # (Auto) 0.3 x10^3/uL (0.0-1.1) 0.5 x10^3/uL (0.0-1.1) Eosinophils # (Auto) 0.0 x10^3/uL (0.0-0.7) 0.1 x10^3/uL (0.0-0.7) Basophils # (Auto) 0.0 x10^3/uL (0.0-0.2) 0.0 x10^3/uL (0.0-0.2) Sodium Level 143 mmol/L (136-145) 144 mmol/L (136-145) Potassium Level 3.7 mmol/L (3.5-5.1) 3.5 mmol/L (3.5-5.1) Chloride Level 105 mmol/L (98-107) 107 mmol/L (98-107) Carbon Dioxide Level 29 mmol/L (21-32) 28 mmol/L (21-32) Anion Gap 9 (6-14) 9 (6-14) Blood Urea Nitrogen 14 mg/dL (7-20) 11 mg/dL (7-20) Creatinine 0.9 mg/dL (0.6-1.0) 0.7 mg/dL (0.6-1.0) Estimated GFR (Cockcroft-Gault) 59.8 79.9 Glucose Level 135 mg/dL (70-99) 91 mg/dL (70-99) Calcium Level 9.0 mg/dL (8.5-10.1) 8.6 mg/dL (8.5-10.1) Triglycerides Level 143 mg/dL (0-150) 78 mg/dL (0-150) Cholesterol Level 258 mg/dL (0-200) 210 mg/dL (0-200) LDL Cholesterol, Calculated 146 mg/dL (0-100) 123 mg/dL (0-100) VLDL Cholesterol, Calculated 29 mg/dL (0-40) 16 mg/dL (0-40) Non-HDL Cholesterol Calculated 175 mg/dL (0-129) 139 mg/dL (0-129) HDL Cholesterol 83 mg/dL (40-60) 71 mg/dL (40-60) Cholesterol/HDL Ratio 3.1 3.0 Phosphorus Level 4.1 mg/dL (2.6-4.7) Magnesium Level 1.5 mg/dL (1.8-2.4) Comment Review of Relevant I have reviewed the following items sangeeta (where applicable) has been applied. Medications: Current Medications Medications (Trade) Dose Ordered Sig/Yohan Route PRN Reason Start Time Stop Time Status Last Admin Dose Admin Labetalol HCl (Normodyne Iv Push) 10 mg 1X ONCE IVP 04/07/21 14:00 04/07/21 14:01 DC 04/07/21 14:05 Aspirin (Ecotrin) 325 mg DAILYWBKFT PO 04/07/21 14:30 04/08/21 08:03 Iohexol (Omnipaque 300 Mg/ml) 70 ml 1X ONCE IV 04/07/21 14:15 04/07/21 14:16 DC 04/07/21 14:28 Losartan Potassium (Cozaar) 50 mg BID PO 04/08/21 10:00 04/08/21 09:22 Justifications for Admission TIA Indications Hemodynamically unstable?: Yes Persistent neurologic signs?: No Cardiomyopathy/Valvular diseas: No Severe hypertension?: Yes Cardiac arrhythmia?: No Other Justification TIA ROLANDA ESPINAL MD Apr 08, 2021 10:53
--- NOTE | 2021-04-08 12:20 | NUR ---
Bedside Swallow Evaluation completed. Please refer to full report in intervention section for additional information. Impressions: Function oropharyngeal swallow. No s/s aspiration noted w/ trials of thin liquids via cup and straw, puree and solids. Pt appears at low risk of aspiration for all consistencies. Recommendations: Regular diet and thin liquids, general swallow precautions. No additional TRACK INSPECTING SUPERVISOR f/u indicated at this time.
--- NOTE | 2021-04-08 15:10 | PDOC ---
PROGRESS NOTES Date of Service DATE: 04/08/21 TIME: 15:04 Assessment Transient ischemic attack symptoms most likely representing hypertensive encephalopathy, exam remains normal Abnormal lipid profile, ordered twice Plan Okay to tighten blood pressure control Aspirin, decrease dose to 81 mg daily Statin Rehab screening MRI of the brain tomorrow Echocardiogram tomorrow Aim for discharge tomorrow if blood pressure stable Objective Vital Signs Date Time Temp Pulse Resp B/P (MAP) Pulse Ox O2 Delivery O2 Flow Rate FiO2 04/08/21 14:46 98.6 75 18 190/76 (114) 96 Room Air 98.6 Intake and Output 04/08/21 07:00 Intake Total 1000 ml Balance 1000 ml Intake Oral 1000 ml # Voids 3 PHYSICAL EXAM Alert. Oriented to time, place and person. PERRL. EOMI. CN: no focal findings. Muscle tone: normal. Muscle strength: 5/5 DTR: 2+ Plantar reflex: Flexor Gait: not examined in bed. Sensory exam: no abnormal findings. No cerebellar signs elicited. Review of Relevant I have reviewed the following items sangeeta (where applicable) has been applied. Labs Laboratory Tests Test 04/07/21 13:23 04/07/21 13:35 04/08/21 03:45 Glucose (Fingerstick) 118 mg/dL (70-99) White Blood Count 7.5 x10^3/uL (4.0-11.0) 6.8 x10^3/uL (4.0-11.0) Red Blood Count 4.80 x10^6/uL (3.50-5.40) 4.41 x10^6/uL (3.50-5.40) Hemoglobin 14.2 g/dL (12.0-15.5) 12.9 g/dL (12.0-15.5) Hematocrit 42.4 % (36.0-47.0) 39.0 % (36.0-47.0) Mean Corpuscular Volume 88 fL (79-100) 88 fL (79-100) Mean Corpuscular Hemoglobin 30 pg (25-35) 29 pg (25-35) Mean Corpuscular Hemoglobin Concent 34 g/dL (31-37) 33 g/dL (31-37) Red Cell Distribution Width 13.9 % (11.5-14.5) 14.0 % (11.5-14.5) Platelet Count 252 x10^3/uL (140-400) 220 x10^3/uL (140-400) Neutrophils (%) (Auto) 66 % (31-73) 66 % (31-73) Lymphocytes (%) (Auto) 28 % (24-48) 26 % (24-48) Monocytes (%) (Auto) 4 % (0-9) 7 % (0-9) Eosinophils (%) (Auto) 1 % (0-3) 2 % (0-3) Basophils (%) (Auto) 1 % (0-3) 1 % (0-3) Neutrophils # (Auto) 5.0 x10^3/uL (1.8-7.7) 4.5 x10^3/uL (1.8-7.7) Lymphocytes # (Auto) 2.1 x10^3/uL (1.0-4.8) 1.8 x10^3/uL (1.0-4.8) Monocytes # (Auto) 0.3 x10^3/uL (0.0-1.1) 0.5 x10^3/uL (0.0-1.1) Eosinophils # (Auto) 0.0 x10^3/uL (0.0-0.7) 0.1 x10^3/uL (0.0-0.7) Basophils # (Auto) 0.0 x10^3/uL (0.0-0.2) 0.0 x10^3/uL (0.0-0.2) Sodium Level 143 mmol/L (136-145) 144 mmol/L (136-145) Potassium Level 3.7 mmol/L (3.5-5.1) 3.5 mmol/L (3.5-5.1) Chloride Level 105 mmol/L (98-107) 107 mmol/L (98-107) Carbon Dioxide Level 29 mmol/L (21-32) 28 mmol/L (21-32) Anion Gap 9 (6-14) 9 (6-14) Blood Urea Nitrogen 14 mg/dL (7-20) 11 mg/dL (7-20) Creatinine 0.9 mg/dL (0.6-1.0) 0.7 mg/dL (0.6-1.0) Estimated GFR (Cockcroft-Gault) 59.8 79.9 Glucose Level 135 mg/dL (70-99) 91 mg/dL (70-99) Calcium Level 9.0 mg/dL (8.5-10.1) 8.6 mg/dL (8.5-10.1) Triglycerides Level 143 mg/dL (0-150) 78 mg/dL (0-150) Cholesterol Level 258 mg/dL (0-200) 210 mg/dL (0-200) LDL Cholesterol, Calculated 146 mg/dL (0-100) 123 mg/dL (0-100) VLDL Cholesterol, Calculated 29 mg/dL (0-40) 16 mg/dL (0-40) Non-HDL Cholesterol Calculated 175 mg/dL (0-129) 139 mg/dL (0-129) HDL Cholesterol 83 mg/dL (40-60) 71 mg/dL (40-60) Cholesterol/HDL Ratio 3.1 3.0 Phosphorus Level 4.1 mg/dL (2.6-4.7) Magnesium Level 1.5 mg/dL (1.8-2.4) Laboratory Tests Test 04/08/21 03:45 White Blood Count 6.8 x10^3/uL (4.0-11.0) Red Blood Count 4.41 x10^6/uL (3.50-5.40) Hemoglobin 12.9 g/dL (12.0-15.5) Hematocrit 39.0 % (36.0-47.0) Mean Corpuscular Volume 88 fL (79-100) Mean Corpuscular Hemoglobin 29 pg (25-35) Mean Corpuscular Hemoglobin Concent 33 g/dL (31-37) Red Cell Distribution Width 14.0 % (11.5-14.5) Platelet Count 220 x10^3/uL (140-400) Neutrophils (%) (Auto) 66 % (31-73) Lymphocytes (%) (Auto) 26 % (24-48) Monocytes (%) (Auto) 7 % (0-9) Eosinophils (%) (Auto) 2 % (0-3) Basophils (%) (Auto) 1 % (0-3) Neutrophils # (Auto) 4.5 x10^3/uL (1.8-7.7) Lymphocytes # (Auto) 1.8 x10^3/uL (1.0-4.8) Monocytes # (Auto) 0.5 x10^3/uL (0.0-1.1) Eosinophils # (Auto) 0.1 x10^3/uL (0.0-0.7) Basophils # (Auto) 0.0 x10^3/uL (0.0-0.2) Sodium Level 144 mmol/L (136-145) Potassium Level 3.5 mmol/L (3.5-5.1) Chloride Level 107 mmol/L (98-107) Carbon Dioxide Level 28 mmol/L (21-32) Anion Gap 9 (6-14) Blood Urea Nitrogen 11 mg/dL (7-20) Creatinine 0.7 mg/dL (0.6-1.0) Estimated GFR (Cockcroft-Gault) 79.9 Glucose Level 91 mg/dL (70-99) Calcium Level 8.6 mg/dL (8.5-10.1) Phosphorus Level 4.1 mg/dL (2.6-4.7) Magnesium Level 1.5 mg/dL (1.8-2.4) Triglycerides Level 78 mg/dL (0-150) Cholesterol Level 210 mg/dL (0-200) LDL Cholesterol, Calculated 123 mg/dL (0-100) VLDL Cholesterol, Calculated 16 mg/dL (0-40) Non-HDL Cholesterol Calculated 139 mg/dL (0-129) HDL Cholesterol 71 mg/dL (40-60) Cholesterol/HDL Ratio 3.0 Medications Current Medications Labetalol HCl (Normodyne Iv Push) 10 mg 1X ONCE IVP Last administered on 04/07/21at 14:05; Start 04/07/21 at 14:00; Stop 04/07/21 at 14:01; Status DC Labetalol HCl (Normodyne Iv Push) 10 mg PRN Q10MIN PRN IVP ELEVATED BP, SEE COMMENTS; Start 04/07/21 at 14:00 Atorvastatin Calcium (Lipitor) 80 mg QHS PO ; Start 04/07/21 at 21:00 Acetaminophen (Tylenol) 650 mg PRN Q6HRS PRN PO MILD PAIN / TEMP > 100.3'F; Start 04/07/21 at 14:00 Aspirin (Ecotrin) 325 mg DAILYWBKFT PO Last administered on 04/08/21at 08:03; Start 04/07/21 at 14:30 Aspirin (Aspirin Rectal Supp) 300 mg PRN DAILY PRN ME IF UNABLE TO TAKE PO; Start 04/07/21 at 14:00 Iohexol (Omnipaque 300 Mg/ml) 70 ml 1X ONCE IV Last administered on 04/07/21at 14:28; Start 04/07/21 at 14:15; Stop 04/07/21 at 14:16; Status DC Info (CONTRAST GIVEN -- Rx MONITORING) 1 each PRN DAILY PRN MC SEE COMMENTS; Start 04/07/21 at 14:15; Stop 04/09/21 at 14:14 Aspirin (Brooklynn Aspirin) 325 mg 1X ONCE PO ; Start 04/07/21 at 14:30; Stop 04/07/21 at 14:31; Status UNV Ondansetron HCl (Zofran) 4 mg PRN Q8HRS PRN IVP NAUSEA/VOMITING; Start 04/07/21 at 14:45; Stop 04/08/21 at 14:45; Status DC Sennosides (Senna) 17.2 mg PRN BID PRN PO CONSTIPATION; Start 04/07/21 at 17:30 Docusate Sodium (Colace) 100 mg PRN DAILY PRN PO HARD STOOLS; Start 04/07/21 at 17:30 Ondansetron HCl (Zofran) 4 mg PRN Q6HRS PRN IVP NAUSEA/VOMITING; Start 04/07/21 at 17:30 Dextrose (Dextrose 50%-Water Syringe) 12.5 gm PRN Q15MIN PRN IV SEE COMMENTS; Start 04/07/21 at 17:30 Acetaminophen (Tylenol) 650 mg PRN Q4HRS PRN PO TEMP OVER 100.4F OR MILD PAIN; Start 04/07/21 at 17:30 Lorazepam (Ativan) 0.5 mg PRN Q6HRS PRN PO ANXIETY / AGITATION; Start 04/07/21 at 17:30 Lorazepam (Ativan Inj) 0.25 mg PRN Q4HRS PRN IV ANXIETY / AGITATION; Start 04/07/21 at 17:30 Prochlorperazine Edisylate (Compazine) 10 mg PRN Q6HRS PRN IV NAUSEA/VOMITING; Start 04/07/21 at 17:30 Zolpidem Tartrate (Ambien) 2.5 mg PRN QHS PRN PO INSOMNIA; Start 04/07/21 at 17:30 Losartan Potassium (Cozaar) 50 mg BID PO Last administered on 04/08/21at 09:22; Start 04/08/21 at 10:00 Amlodipine Besylate (Norvasc) 5 mg DAILY PO Last administered on 04/08/21at 12:10; Start 04/08/21 at 10:45 Active Scripts Active Reported Losartan Potassium (Losartan Potassium) 25 Mg Tablet 100 Mg PO DAILY Vitals/I & O Vital Sign - Last 24 Hours 04/07/21 04/07/21 04/07/21 04/07/21 15:27 15:57 16:20 16:30 Temp 97.9 98.4 97.9 98.4 Pulse 80 76 82 Resp 23 24 16 B/P (MAP) 166/71 (102) 160/74 (102) 188/51 (96) Pulse Ox 98 97 95 O2 Delivery Room Air Room Air Room Air Room Air 04/07/21 04/07/21 04/07/21 04/08/21 19:00 20:00 22:39 02:49 Temp 99.5 98.8 98.0 99.5 98.8 98.0 Pulse 76 71 65 Resp 16 18 16 B/P (MAP) 175/74 (107) 190/86 (120) 183/87 (119) Pulse Ox 94 97 98 O2 Delivery Room Air Room Air Room Air Room Air 04/08/21 04/08/21 04/08/21 04/08/21 07:00 08:00 09:00 09:22 Temp 98.1 98.1 Pulse 69 70 Resp 18 B/P (MAP) 214/95 (134) 207/90 (129) 207/90 Pulse Ox 95 O2 Delivery Room Air Room Air 04/08/21 04/08/21 04/08/21 11:00 12:10 14:46 Temp 98.7 98.6 98.7 98.6 Pulse 79 78 75 Resp 18 18 B/P (MAP) 164/70 (101) 164/70 190/76 (114) Pulse Ox 94 96 O2 Delivery Room Air Room Air Intake and Output 04/07/21 04/07/21 04/08/21 15:00 23:00 07:00 Intake Total 1000 ml 0 ml Balance 1000 ml [address] STROKE HEAD W/O Date: 04/07/2021 2:15 PM Clinical Indication: tia symptoms, DYSPHASIA, SLURRED Comparison: None. Technique: 5 mm axial tomographic images were obtained of the head without contrast. These were viewed on brain and bone windows. One or more of the following dose reduction techniques were utilized: Automated exposure control (AEC), Adjustment of mA and/or kV according to patient size, Use of iterative reconstruction technique such as ASiR, CT scan done according to ALARA and image gently/image wisely Findings: The brain parenchyma is normal in attenuation Mild nonspecific periventricular hypoattenuation is most consistent with chronic small vessel ischemic disease. Age-indeterminate left thalamic lacunar infarct. No intra- or extra-axial mass or fluid collection. No acute hemorrhage. The ventricles are normal in size, shape, and morphology. The palmer-white matter junction is normal. The subarachnoid cisterns are patent. The visualized paranasal sinuses are normal. The visualized portions of the orbits and globes are normal. Right mastoid fluid. The ditch worker topogram shows no lytic lesion or fracture. Impression: 1. No acute hemorrhage or large territory palmer-white loss. 2. Age indeterminate left thalamic lacunar infarct. No priors for comparison. CTA HEAD AND NECK W/WO CONTRAST DATE: 04/07/2021 2:27 PM INDICATION: tia symptoms TECHNIQUE: CTA angiogram of the head and neck was obtained after IV bolus administration of 75 cc of Omnipaque 300. The images were sent to workstation and multiplanar reconstructions were obtained. Multiplanar reconstruction imag es to include MIP and 3-D reconstruction images are submitted. One or more of the following dose reduction techniques were utilized: Automated exposure control (AEC), Adjustment of mA and/or kV according to patient size, Use of iterative reconstruction technique such as ASiR, CT scan done according to ALARA and image gently/image wisely COMPARISON: Noncontrast CT head done earlier the same day. FINDINGS: CTA Head: The visualized distal internal carotid arteries, anterior and middle cerebral arteries are patent and normal caliber. The distal vertebral arteries, basilar artery, and posterior cerebral arteries are patent and normal caliber. No aneurysm or arteriovenous malformation is seen. CTA Neck: Right carotid: The right common carotid artery is patent and normal caliber. The carotid bifurcation is normal. No stenosis of the right internal carotid artery per NASCET criteria. The right external carotid artery is patent. Left carotid: The left common carotid artery is patent and normal caliber. The carotid bifurcation is normal. No stenosis of the left internal carotid artery per NASCET criteria. The left external carotid artery is patent. Right vertebral: The right vertebral artery is patent and normal caliber. Left vertebral: The left vertebral artery is patent and normal caliber. The visualized portions of the aortic arch are normal. The origins of the brachiocephalic and subclavian arteries are normal. No cervical lymphadenopathy. Corrected 1.3 cm nodule, not requiring further evaluation based on size criteria. The parotid and submandibular glands are normal. The visualized aerodigestive tract is unremarkable. Mild multilevel degenerative disc height loss. Multilevel disc protrusions and marginal osteophytes results in multilevel spinal canal stenosis. Multilevel uncovertebral and facet arthrosis with multilevel neural foraminal narrowing. The visualized portions of the lungs are clear. IMPRESSION: 1. No intracranial large vessel occlusion. 2. No stenosis of the cervical carotid or vertebral arteries. Justicifation of Admission Dx: Justifications for Admission: Justification of Admission Dx: N/A BLANCA HERNANDEZ MD Apr 08, 2021 15:10
[2021-04-08] MEDS: ATORVASTATIN CALCIUM 40 MG TABLET. PO SCH (20:28)
[2021-04-09 00:07] LABS: HEMOGLOBIN A1C 5.6 % (4.8-5.6)
[2021-04-09 02:56] VITALS: BP 129/63
[2021-04-09 06:51] LABS: BASO # 0.1 x10^3/uL (0.0-0.2); BASO % 1 % (0-3); EOS # 0.2 x10^3/uL (0.0-0.7); EOS % 3 % (0-3); HEMATOCRIT 43.3 % (36.0-47.0); HEMOGLOBIN 14.1 g/dL (12.0-15.5); LYMPH # 1.9 x10^3/uL (1.0-4.8); LYMPH % 28 % (24-48); MEAN CORPUSCULAR HEMOGLOBIN 29 pg (25-35); MEAN CORPUSCULAR HGB CONC 33 g/dL (31-37); MEAN CORPUSCULAR VOLUME 89 fL (79-100); MONO # 0.5 x10^3/uL (0.0-1.1); MONO % 7 % (0-9); NEUT # 4.3 x10^3/uL (1.8-7.7); NEUT % 63 % (31-73); PLATELET COUNT 214 x10^3/uL (140-400); RED BLOOD COUNT 4.88 x10^6/uL (3.50-5.40); WHITE BLOOD COUNT 6.9 x10^3/uL (4.0-11.0)
[2021-04-09 07:00] VITALS: BP 170/76
[2021-04-09 07:02] LABS: CALCIUM 9.5 mg/dL (8.5-10.1); CREATININE 0.8 mg/dL (0.6-1.0); GFR 68.5; MAGNESIUM 1.9 mg/dL (1.8-2.4); POTASSIUM 3.8 mmol/L (3.5-5.1)
[2021-04-09] MEDS ORDERED: ASPIRIN ENTERIC COATED 81 MG TABLET.DR. PO SCH (08:00)
--- NOTE | 2021-04-09 09:24 | PDOC ---
PROGRESS NOTES Date of Service DATE: 04/09/21 TIME: 09:22 Assessment Transient ischemic attack symptoms most likely representing hypertensive encephalopathy, exam remains normal Abnormal lipid profile, ordered twice Blood pressure remains high off-and-on Son tells me in confidence that he is worried about patient having some dementia, she has had some cognitive decline over the past year, but refuses to get checked. I tell him that bedside mental status testing in the hospital is fine, it would be more appropriate to check mental status again once the acute illnesses over. If she can come to my office I would be glad to do this testing. Plan Tighten blood pressure control Aspirin, decrease dose to 81 mg daily Statin Rehab screening MRI of the brain and echocardiogram Aim for discharge today if blood pressure stable If patient willing, she can follow-up in my office in a few weeks for mental status testing Subjective No complaints Objective Vital Signs Date Time Temp Pulse Resp B/P (MAP) Pulse Ox O2 Delivery O2 Flow Rate FiO2 04/09/21 07:00 97.4 69 18 170/76 (107) 96 Room Air 97.4 Intake and Output 04/09/21 07:00 Intake Total 550 ml Balance 550 ml Intake Oral 550 ml # Voids 4 PHYSICAL EXAM Alert. Oriented to time, place and person. PERRL. EOMI. CN: no focal findings. Muscle tone: normal. Muscle strength: 5/5 DTR: 2+ Plantar reflex: Flexor Gait: not examined in bed. Sensory exam: no abnormal findings. No cerebellar signs elicited. Review of Relevant I have reviewed the following items sangeeta (where applicable) has been applied. Labs Laboratory Tests Test 04/07/21 13:23 04/07/21 13:35 04/08/21 03:45 04/09/21 05:25 Glucose (Fingerstick) 118 mg/dL (70-99) White Blood Count 7.5 x10^3/uL (4.0-11.0) 6.8 x10^3/uL (4.0-11.0) 6.9 x10^3/uL (4.0-11.0) Red Blood Count 4.80 x10^6/uL (3.50-5.40) 4.41 x10^6/uL (3.50-5.40) 4.88 x10^6/uL (3.50-5.40) Hemoglobin 14.2 g/dL (12.0-15.5) 12.9 g/dL (12.0-15.5) 14.1 g/dL (12.0-15.5) Hematocrit 42.4 % (36.0-47.0) 39.0 % (36.0-47.0) 43.3 % (36.0-47.0) Mean Corpuscular Volume 88 fL (79-100) 88 fL (79-100) 89 fL (79-100) Mean Corpuscular Hemoglobin 30 pg (25-35) 29 pg (25-35) 29 pg (25-35) Mean Corpuscular Hemoglobin Concent 34 g/dL (31-37) 33 g/dL (31-37) 33 g/dL (31-37) Red Cell Distribution Width 13.9 % (11.5-14.5) 14.0 % (11.5-14.5) 14.0 % (11.5-14.5) Platelet Count 252 x10^3/uL (140-400) 220 x10^3/uL (140-400) 214 x10^3/uL (140-400) Neutrophils (%) (Auto) 66 % (31-73) 66 % (31-73) 63 % (31-73) Lymphocytes (%) (Auto) 28 % (24-48) 26 % (24-48) 28 % (24-48) Monocytes (%) (Auto) 4 % (0-9) 7 % (0-9) 7 % (0-9) Eosinophils (%) (Auto) 1 % (0-3) 2 % (0-3) 3 % (0-3) Basophils (%) (Auto) 1 % (0-3) 1 % (0-3) 1 % (0-3) Neutrophils # (Auto) 5.0 x10^3/uL (1.8-7.7) 4.5 x10^3/uL (1.8-7.7) 4.3 x10^3/uL (1.8-7.7) Lymphocytes # (Auto) 2.1 x10^3/uL (1.0-4.8) 1.8 x10^3/uL (1.0-4.8) 1.9 x10^3/uL (1.0-4.8) Monocytes # (Auto) 0.3 x10^3/uL (0.0-1.1) 0.5 x10^3/uL (0.0-1.1) 0.5 x10^3/uL (0.0-1.1) Eosinophils # (Auto) 0.0 x10^3/uL (0.0-0.7) 0.1 x10^3/uL (0.0-0.7) 0.2 x10^3/uL (0.0-0.7) Basophils # (Auto) 0.0 x10^3/uL (0.0-0.2) 0.0 x10^3/uL (0.0-0.2) 0.1 x10^3/uL (0.0-0.2) Sodium Level 143 mmol/L (136-145) 144 mmol/L (136-145) 142 mmol/L (136-145) Potassium Level 3.7 mmol/L (3.5-5.1) 3.5 mmol/L (3.5-5.1) 3.8 mmol/L (3.5-5.1) Chloride Level 105 mmol/L (98-107) 107 mmol/L (98-107) 107 mmol/L (98-107) Carbon Dioxide Level 29 mmol/L (21-32) 28 mmol/L (21-32) 25 mmol/L (21-32) Anion Gap 9 (6-14) 9 (6-14) 10 (6-14) Blood Urea Nitrogen 14 mg/dL (7-20) 11 mg/dL (7-20) 11 mg/dL (7-20) Creatinine 0.9 mg/dL (0.6-1.0) 0.7 mg/dL (0.6-1.0) 0.8 mg/dL (0.6-1.0) Estimated GFR (Cockcroft-Gault) 59.8 79.9 68.5 Glucose Level 135 mg/dL (70-99) 91 mg/dL (70-99) 90 mg/dL (70-99) Hemoglobin A1c 5.6 % (4.8-5.6) Calcium Level 9.0 mg/dL (8.5-10.1) 8.6 mg/dL (8.5-10.1) 9.5 mg/dL (8.5-10.1) Triglycerides Level 143 mg/dL (0-150) 78 mg/dL (0-150) Cholesterol Level 258 mg/dL (0-200) 210 mg/dL (0-200) LDL Cholesterol, Calculated 146 mg/dL (0-100) 123 mg/dL (0-100) VLDL Cholesterol, Calculated 29 mg/dL (0-40) 16 mg/dL (0-40) Non-HDL Cholesterol Calculated 175 mg/dL (0-129) 139 mg/dL (0-129) HDL Cholesterol 83 mg/dL (40-60) 71 mg/dL (40-60) Cholesterol/HDL Ratio 3.1 3.0 Phosphorus Level 4.1 mg/dL (2.6-4.7) Magnesium Level 1.5 mg/dL (1.8-2.4) 1.9 mg/dL (1.8-2.4) Laboratory Tests Test 04/09/21 05:25 White Blood Count 6.9 x10^3/uL (4.0-11.0) Red Blood Count 4.88 x10^6/uL (3.50-5.40) Hemoglobin 14.1 g/dL (12.0-15.5) Hematocrit 43.3 % (36.0-47.0) Mean Corpuscular Volume 89 fL (79-100) Mean Corpuscular Hemoglobin 29 pg (25-35) Mean Corpuscular Hemoglobin Concent 33 g/dL (31-37) Red Cell Distribution Width 14.0 % (11.5-14.5) Platelet Count 214 x10^3/uL (140-400) Neutrophils (%) (Auto) 63 % (31-73) Lymphocytes (%) (Auto) 28 % (24-48) Monocytes (%) (Auto) 7 % (0-9) Eosinophils (%) (Auto) 3 % (0-3) Basophils (%) (Auto) 1 % (0-3) Neutrophils # (Auto) 4.3 x10^3/uL (1.8-7.7) Lymphocytes # (Auto) 1.9 x10^3/uL (1.0-4.8) Monocytes # (Auto) 0.5 x10^3/uL (0.0-1.1) Eosinophils # (Auto) 0.2 x10^3/uL (0.0-0.7) Basophils # (Auto) 0.1 x10^3/uL (0.0-0.2) Sodium Level 142 mmol/L (136-145) Potassium Level 3.8 mmol/L (3.5-5.1) Chloride Level 107 mmol/L (98-107) Carbon Dioxide Level 25 mmol/L (21-32) Anion Gap 10 (6-14) Blood Urea Nitrogen 11 mg/dL (7-20) Creatinine 0.8 mg/dL (0.6-1.0) Estimated GFR (Cockcroft-Gault) 68.5 Glucose Level 90 mg/dL (70-99) Calcium Level 9.5 mg/dL (8.5-10.1) Magnesium Level 1.9 mg/dL (1.8-2.4) Medications Current Medications Labetalol HCl (Normodyne Iv Push) 10 mg 1X ONCE IVP Last administered on 04/07/21at 14:05; Start 04/07/21 at 14:00; Stop 04/07/21 at 14:01; Status DC Labetalol HCl (Normodyne Iv Push) 10 mg PRN Q10MIN PRN IVP ELEVATED BP, SEE COMMENTS; Start 04/07/21 at 14:00 Atorvastatin Calcium (Lipitor) 80 mg QHS PO Last administered on 04/08/21at 20:28; Start 04/07/21 at 21:00 Acetaminophen (Tylenol) 650 mg PRN Q6HRS PRN PO MILD PAIN / TEMP > 100.3'F; Start 04/07/21 at 14:00 Aspirin (Ecotrin) 325 mg DAILYWBKFT PO Last administered on 04/08/21at 08:03; Start 04/07/21 at 14:30; Stop 04/08/21 at 15:06; Status DC Aspirin (Aspirin Rectal Supp) 300 mg PRN DAILY PRN NC IF UNABLE TO TAKE PO; Start 04/07/21 at 14:00; Stop 04/08/21 at 15:06; Status DC Iohexol (Omnipaque 300 Mg/ml) 70 ml 1X ONCE IV Last administered on 04/07/21at 14:28; Start 04/07/21 at 14:15; Stop 04/07/21 at 14:16; Status DC Info (CONTRAST GIVEN -- Rx MONITORING) 1 each PRN DAILY PRN MC SEE COMMENTS; Start 04/07/21 at 14:15; Stop 04/09/21 at 14:14 Aspirin (Brooklynn Aspirin) 325 mg 1X ONCE PO ; Start 04/07/21 at 14:30; Stop 04/07/21 at 14:31; Status UNV Ondansetron HCl (Zofran) 4 mg PRN Q8HRS PRN IVP NAUSEA/VOMITING; Start 04/07/21 at 14:45; Stop 04/08/21 at 14:45; Status DC Sennosides (Senna) 17.2 mg PRN BID PRN PO CONSTIPATION; Start 04/07/21 at 17:30 Docusate Sodium (Colace) 100 mg PRN DAILY PRN PO HARD STOOLS; Start 04/07/21 at 17:30 Ondansetron HCl (Zofran) 4 mg PRN Q6HRS PRN IVP NAUSEA/VOMITING; Start 04/07/21 at 17:30 Dextrose (Dextrose 50%-Water Syringe) 12.5 gm PRN Q15MIN PRN IV SEE COMMENTS; Start 04/07/21 at 17:30 Acetaminophen (Tylenol) 650 mg PRN Q4HRS PRN PO TEMP OVER 100.4F OR MILD PAIN; Start 04/07/21 at 17:30 Lorazepam (Ativan) 0.5 mg PRN Q6HRS PRN PO ANXIETY / AGITATION; Start 04/07/21 at 17:30 Lorazepam (Ativan Inj) 0.25 mg PRN Q4HRS PRN IV ANXIETY / AGITATION; Start 04/07/21 at 17:30 Prochlorperazine Edisylate (Compazine) 10 mg PRN Q6HRS PRN IV NAUSEA/VOMITING; Start 04/07/21 at 17:30 Zolpidem Tartrate (Ambien) 2.5 mg PRN QHS PRN PO INSOMNIA; Start 04/07/21 at 17:30 Losartan Potassium (Cozaar) 50 mg BID PO Last administered on 04/08/21at 20:28; Start 04/08/21 at 10:00 Amlodipine Besylate (Norvasc) 5 mg DAILY PO Last administered on 04/08/21at 12:10; Start 04/08/21 at 10:45 Aspirin (Ecotrin) 81 mg DAILYWBKFT PO ; Start 04/09/21 at 08:00 Active Scripts Active Reported Losartan Potassium (Losartan Potassium) 25 Mg Tablet 100 Mg PO DAILY Vitals/I & O Vital Sign - Last 24 Hours 04/08/21 04/08/21 04/08/21 04/08/21 11:00 12:10 14:46 19:22 Temp 98.7 98.6 99.2 98.7 98.6 99.2 Pulse 79 78 75 75 Resp 18 18 16 B/P (MAP) 164/70 (101) 164/70 190/76 (114) 157/72 (100) Pulse Ox 94 96 98 O2 Delivery Room Air Room Air Room Air 04/08/21 04/08/21 04/08/21 04/09/21 19:53 20:28 22:39 02:56 Temp 98.8 97.3 98.8 97.3 Pulse 75 67 73 Resp 16 16 B/P (MAP) 157/72 144/68 (93) 129/63 (85) Pulse Ox 100 100 O2 Delivery Room Air Room Air Room Air 04/09/21 07:00 Temp 97.4 97.4 Pulse 69 Resp 18 B/P (MAP) 170/76 (107) Pulse Ox 96 O2 Delivery Room Air Intake and Output 04/08/21 04/08/21 04/09/21 15:00 23:00 07:00 Intake Total 550 ml 0 ml Balance 550 ml 0 ml Justicifation of Admission Dx: Justifications for Admission: Justification of Admission Dx: N/A BLANCA HERNANDEZ MD Apr 09, 2021 09:24
--- NOTE | 2021-04-09 10:39 | RAD ---
EXAMINATION: MRI brain without IV contrast INDICATION: Transvenous ischemic attack. COMPARISON: 04/07/2021 TECHNIQUE: MRI of the brain was performed using high-resolution multiplanar multisequence imaging. FINDINGS: There is no evidence of acute or subacute infarct, intracranial hemorrhage, extra-axial fluid collect ion, mass, or mass effect. Major arterial flow-voids are present. There is moderate brain volume loss . There are scattered foci of T2/FLAIR hyperintensity within the supratentorial white matter, indeter minate but possibly representing microvascular changes. Redemonstrated old lacunar infarct in the lef t thalamus. Opacification of the right mastoid air cells. The paranasal sinuses and left mastoid air cells are cl ear. The orbital contents appear within normal limits. IMPRESSION: 1. No evidence of acute or subacute infarct. 2. Right mastoid effusion. 3. Other chronic/incidental findings, as above. Electronically signed by: Rosibel Villafana MD (04/09/2021 10:37 AM) [id number]
[2021-04-09] MEDS: LOSARTAN POTASSIUM 50 MG TABLET. PO SCH (10:44)
[2021-04-09 11:00] VITALS: BP 197/80
--- NOTE | 2021-04-09 11:08 | PDOC3 ---
Discharge Summary Visit Information Date of Admission: Apr 07, 2021 Date of Discharge: Apr 09, 2021 Final Diagnosis ansient ischemic attack symptoms most likely representing hypertensive encephalopathy, exam remains normal Abnormal lipid profile, ordered twice Blood pressure remains high off-and-on Son tells me in confidence that he is worried about patient having some dementia, she has had some cognitive decline over the past year, but refuses to get checked. I tell him that bedside mental status testing in the hospital is fine, it would be more appropriate to check mental status again once the acute illnesses over. If she can come to my office I would be glad to do this testing. Brief Hospital Course Allergies Allergies Coded Allergies Type Severity Reaction Last Updated Verified JUNIOR Inhibitors Allergy Intermediate Persistant cough 04/07/21 Yes Penicillins Allergy Intermediate 04/07/21 Yes Vital Signs Vital Signs Date Time Temp Pulse Resp B/P (MAP) Pulse Ox O2 Delivery O2 Flow Rate FiO2 04/09/21 10:44 88 197/80 04/09/21 07:00 97.4 18 96 Room Air 97.4 Lab Results Laboratory Tests Test 04/07/21 13:23 04/07/21 13:35 04/08/21 03:45 04/09/21 05:25 Glucose (Fingerstick) 118 mg/dL (70-99) White Blood Count 7.5 x10^3/uL (4.0-11.0) 6.8 x10^3/uL (4.0-11.0) 6.9 x10^3/uL (4.0-11.0) Red Blood Count 4.80 x10^6/uL (3.50-5.40) 4.41 x10^6/uL (3.50-5.40) 4.88 x10^6/uL (3.50-5.40) Hemoglobin 14.2 g/dL (12.0-15.5) 12.9 g/dL (12.0-15.5) 14.1 g/dL (12.0-15.5) Hematocrit 42.4 % (36.0-47.0) 39.0 % (36.0-47.0) 43.3 % (36.0-47.0) Mean Corpuscular Volume 88 fL (79-100) 88 fL (79-100) 89 fL (79-100) Mean Corpuscular Hemoglobin 30 pg (25-35) 29 pg (25-35) 29 pg (25-35) Mean Corpuscular Hemoglobin Concent 34 g/dL (31-37) 33 g/dL (31-37) 33 g/dL (31-37) Red Cell Distribution Width 13.9 % (11.5-14.5) 14.0 % (11.5-14.5) 14.0 % (11.5-14.5) Platelet Count 252 x10^3/uL (140-400) 220 x10^3/uL (140-400) 214 x10^3/uL (140-400) Neutrophils (%) (Auto) 66 % (31-73) 66 % (31-73) 63 % (31-73) Lymphocytes (%) (Auto) 28 % (24-48) 26 % (24-48) 28 % (24-48) Monocytes (%) (Auto) 4 % (0-9) 7 % (0-9) 7 % (0-9) Eosinophils (%) (Auto) 1 % (0-3) 2 % (0-3) 3 % (0-3) Basophils (%) (Auto) 1 % (0-3) 1 % (0-3) 1 % (0-3) Neutrophils # (Auto) 5.0 x10^3/uL (1.8-7.7) 4.5 x10^3/uL (1.8-7.7) 4.3 x10^3/uL (1.8-7.7) Lymphocytes # (Auto) 2.1 x10^3/uL (1.0-4.8) 1.8 x10^3/uL (1.0-4.8) 1.9 x10^3/uL (1.0-4.8) Monocytes # (Auto) 0.3 x10^3/uL (0.0-1.1) 0.5 x10^3/uL (0.0-1.1) 0.5 x10^3/uL (0.0-1.1) Eosinophils # (Auto) 0.0 x10^3/uL (0.0-0.7) 0.1 x10^3/uL (0.0-0.7) 0.2 x10^3/uL (0.0-0.7) Basophils # (Auto) 0.0 x10^3/uL (0.0-0.2) 0.0 x10^3/uL (0.0-0.2) 0.1 x10^3/uL (0.0-0.2) Sodium Level 143 mmol/L (136-145) 144 mmol/L (136-145) 142 mmol/L (136-145) Potassium Level 3.7 mmol/L (3.5-5.1) 3.5 mmol/L (3.5-5.1) 3.8 mmol/L (3.5-5.1) Chloride Level 105 mmol/L (98-107) 107 mmol/L (98-107) 107 mmol/L (98-107) Carbon Dioxide Level 29 mmol/L (21-32) 28 mmol/L (21-32) 25 mmol/L (21-32) Anion Gap 9 (6-14) 9 (6-14) 10 (6-14) Blood Urea Nitrogen 14 mg/dL (7-20) 11 mg/dL (7-20) 11 mg/dL (7-20) Creatinine 0.9 mg/dL (0.6-1.0) 0.7 mg/dL (0.6-1.0) 0.8 mg/dL (0.6-1.0) Estimated GFR (Cockcroft-Gault) 59.8 79.9 68.5 Glucose Level 135 mg/dL (70-99) 91 mg/dL (70-99) 90 mg/dL (70-99) Hemoglobin A1c 5.6 % (4.8-5.6) Calcium Level 9.0 mg/dL (8.5-10.1) 8.6 mg/dL (8.5-10.1) 9.5 mg/dL (8.5-10.1) Triglycerides Level 143 mg/dL (0-150) 78 mg/dL (0-150) Cholesterol Level 258 mg/dL (0-200) 210 mg/dL (0-200) LDL Cholesterol, Calculated 146 mg/dL (0-100) 123 mg/dL (0-100) VLDL Cholesterol, Calculated 29 mg/dL (0-40) 16 mg/dL (0-40) Non-HDL Cholesterol Calculated 175 mg/dL (0-129) 139 mg/dL (0-129) HDL Cholesterol 83 mg/dL (40-60) 71 mg/dL (40-60) Cholesterol/HDL Ratio 3.1 3.0 Phosphorus Level 4.1 mg/dL (2.6-4.7) Magnesium Level 1.5 mg/dL (1.8-2.4) 1.9 mg/dL (1.8-2.4) Laboratory Tests Test 04/09/21 05:25 White Blood Count 6.9 x10^3/uL (4.0-11.0) Red Blood Count 4.88 x10^6/uL (3.50-5.40) Hemoglobin 14.1 g/dL (12.0-15.5) Hematocrit 43.3 % (36.0-47.0) Mean Corpuscular Volume 89 fL (79-100) Mean Corpuscular Hemoglobin 29 pg (25-35) Mean Corpuscular Hemoglobin Concent 33 g/dL (31-37) Red Cell Distribution Width 14.0 % (11.5-14.5) Platelet Count 214 x10^3/uL (140-400) Neutrophils (%) (Auto) 63 % (31-73) Lymphocytes (%) (Auto) 28 % (24-48) Monocytes (%) (Auto) 7 % (0-9) Eosinophils (%) (Auto) 3 % (0-3) Basophils (%) (Auto) 1 % (0-3) Neutrophils # (Auto) 4.3 x10^3/uL (1.8-7.7) Lymphocytes # (Auto) 1.9 x10^3/uL (1.0-4.8) Monocytes # (Auto) 0.5 x10^3/uL (0.0-1.1) Eosinophils # (Auto) 0.2 x10^3/uL (0.0-0.7) Basophils # (Auto) 0.1 x10^3/uL (0.0-0.2) Sodium Level 142 mmol/L (136-145) Potassium Level 3.8 mmol/L (3.5-5.1) Chloride Level 107 mmol/L (98-107) Carbon Dioxide Level 25 mmol/L (21-32) Anion Gap 10 (6-14) Blood Urea Nitrogen 11 mg/dL (7-20) Creatinine 0.8 mg/dL (0.6-1.0) Estimated GFR (Cockcroft-Gault) 68.5 Glucose Level 90 mg/dL (70-99) Calcium Level 9.5 mg/dL (8.5-10.1) Magnesium Level 1.9 mg/dL (1.8-2.4) Brief Hospital Course Ms. 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, OK, other micro changes only Assessment Assessment Tighten blood pressure control Aspirin, decrease dose to 81 mg daily Statin Rehab screening MRI of the brain and echocardiogram Aim for discharge today if blood pressure stable If patient willing, she can follow-up in my office in a few weeks for mental status testing Discharge Information Condition at Discharge: Improved Follow Up: Weeks Disposition/Orders: D/C to Home Scheduled Amlodipine Besylate (Amlodipine Besylate) 10 Mg Tablet, 10 MG PO DAILY for hypertension, #30 Prescribed by: ROBY COTTER on 04/09/21 1145 Aspirin (Aspirin Ec) 81 Mg Tablet.dr, 81 MG PO DAILYWBKFT for prevent stroke, #100 Prescribed by: ROBY COTTER on 04/09/21 1145 Atorvastatin Calcium (Atorvastatin Calcium) 40 Mg Tablet, 40 MG PO QHS for prevent stroke, #30 Ref 2 Prescribed by: ROBY COTTER on 04/09/21 1145 Losartan Potassium (Losartan Potassium ) 25 Mg Tablet, 100 MG PO DAILY for HYPERTENSION, (Reported) Entered as Reported by: LÓPEZ SCHREIBER on 04/07/211911 Last Action: New Order on 04/07/211911 by LÓPEZ SCHREIBER Metoprolol Succinate (Metoprolol Succinate ( Xl )) 25 Mg Tab.er.24h, 1 TAB PO DAILY for hypertension, #30 Ref 1 Prescribed by: ROBY COTTER on 04/09/21 1259 Patient Instructions Patient Instructions > 30 min 2 visits, son in room, many questions Justicifation of Admission Dx: Justifications for Admission: Justification of Admission Dx: N/A ROBY COTTER MD Apr 09, 2021 11:08
[2021-04-09] MEDS ORDERED: METOPROLOL SUCC 24HR ER 50 MG TAB.ER.24H. PO SCH (11:15)
[2021-04-09] MEDS ORDERED: ATOR40TA59 PO (11:45)
[2021-04-09] MEDS ORDERED: AMLO-187 PO (11:45)
[2021-04-09] MEDS ORDERED: ASPI-886 PO (11:45)
[2021-04-09] MEDS ORDERED: METOPROLOL IV PUSH 5 MG/5 ML VIAL. IVP ONE (12:00)
--- NOTE | 2021-04-09 12:24 | NUR ---
SS following for discharge planning. SS reviewed pt chart and discussed with pt RN. Pt is from home and is currently on room air. Neurology following. PT/OT recommended home independent. PO diet. Discharge order on the chart for home with self care.
--- NOTE | 2021-04-09 12:58 | CARD ---
MR#: [id number] Date of Study: 04/09/2021 Ordering Physician: BLANCA HERNANDEZ, Referring Physician: BLANCA HERNANDEZ, Tech: Deloris Ellis [facility] APPROVED REPORT EXAM: Two-dimensional and M-mode echocardiogram with Doppler and color Doppler. Other Information Quality : AverageHR: 67bpm Rhythm : NSR INDICATION CVA/TIA RISK FACTORS Hypertension 2D DIMENSIONS Left Atrium(2D)3.2 (1.6-4.0cm)IVSd1.1 (0.7-1.1cm) Aortic Root(2D)3.2 (2.0-3.7cm)LVDd3.5 (3.9-5.9cm) LVOT Diameter2.1 (1.8-2.4cm)PWd1.0 (0.7-1.1cm) IVSs1.3 (0.8-1.2cm)LVDs2.5 (2.5-4.0cm) FS (%) 28.6 %PWs1.3 (0.8-1.2cm) SV29.1 mlLVEF(%)56.1 (>50%) Aortic Valve AoV Peak Lon.146.7cm/sAoV VTI28.6cm AO Peak GR.8.6mmHgLVOT Peak Lon.108.5cm/s LVOT VTI 25.41cmAO Mean GR.4mmHg GABRIELA (VMAX)2.69af1QDB (VTI)3.06cm2 Mitral Valve MV E Qothhvbh84.6cm/sMV DECEL SNWQ242cc MV A Edfzocrj757.4cm/sMV CZV89qw E/A Ratio0.6MVA (PHT)2.54cm2 TDI E/Lateral E'10.8E/Medial E'13.5 Pulmonary Valve PV Peak Gikfaesa95.2cm/sPV Peak Grad.2mmHg Tricuspid Valve TR P. Cjwukiif595mf/sTR Peak Gr.27mmHg LEFT VENTRICLE The left ventricle is normal size. There is mild concentric left ventricular hypertrophy. The left ve ntricular systolic function is normal and the ejection fraction is within normal range. The ejection fraction of 60-65%. There is normal LV segmental wall motion. Transmitral Doppler flow pattern is Gr didier I-abnormal relaxation pattern. RIGHT VENTRICLE The right ventricle is normal size. There is normal right ventricular wall thickness. The right ventr icular systolic function is normal. ATRIA The left atrium size is normal. The right atrium size is normal. The interatrial septum is intact wit h no evidence for an atrial septal defect or patent foramen ovale as noted on 2-D or Doppler imaging. AORTIC VALVE The aortic valve is normal in structure and function. Doppler and Color Flow revealed mild aortic reg urgitation. There is no significant aortic valvular stenosis. MITRAL VALVE The mitral valve is normal in structure and function. There is no evidence of mitral valve prolapse. There is no mitral valve stenosis. Doppler and Color-flow revealed mild mitral regurgitation. TRICUSPID VALVE The tricuspid valve is normal in structure and function. Doppler and Color Flow revealed mild tricusp id regurgitation. Estimated PAP 30 mmHg. There is no tricuspid valve stenosis. PULMONIC VALVE The pulmonary valve is normal in structure and function. Doppler and Color Flow revealed trace pulmon ic valvular regurgitation. GREAT VESSELS The aortic root is normal in size. The ascending aorta is normal in size. The IVC is normal in size a nd collapses >50% with inspiration. PERICARDIAL EFFUSION There is no evidence of significant pericardial effusion. Critical Notification Critical Value: No <Conclusion> The left ventricle is normal size. The left ventricular systolic function is normal and the ejection fraction is within normal range. The ejection fraction of 60-65%. There is mild concentric left ventricular hypertrophy. The interatrial septum is intact with no evidence for an atrial septal defect or patent foramen ovale as noted on 2-D or Doppler imaging. Doppler and Color Flow revealed mild aortic regurgitation. There is no significant aortic valvular stenosis. Doppler and Color-flow revealed mild mitral regurgitation. Doppler and Color Flow revealed mild tricuspid regurgitation. Estimated PAP 30 mmHg. Signed by : Slim Villarreal MD Electronically Approved : 04/09/2021 12:58:12
[2021-04-09] MEDS ORDERED: METO-239 PO (12:59)
[2021-04-09 13:40] VITALS: BP 141/67
--- NOTE | 2021-04-09 15:10 | NUR ---
Discharge Note: MARK LEVY [address] [place] [address] Discharge instructions and discharge home medications reviewed with Patient and a copy given. All questions have been answered and understanding verbalized. The following instructions and handouts were given: discharge instructions, med list, med education, HTN/BP education, stroke prevention education. Discontinued lines and drains: Peripheral IV intact. Patient discharged to Home or Self Care with Family Member via Ambulated at 1510.
== END 2021-04-09 15:18 | disposition home or self-care (01) | DRG 79 ==
LOC: ER 13:12 → 6 SOUTH 14:30
PROVIDERS: ADMIT Internal Medicine; ATTEND Internal Medicine
DX: I67.4 Hypertensive encephalopathy (principal); E78.5 Hyperlipidemia, unspecified; I10 Essential (primary) hypertension; I16.0 Hypertensive urgency; Z79.82 Long term (current) use of aspirin; Z82.0 Family history of epilepsy and other diseases of the nervous system; Z82.49 Family history of ischemic heart disease and other diseases of the circulatory system; Z86.73 Personal history of transient ischemic attack (TIA), and cerebral infarction without residual deficits; Z96.612 Presence of left artificial shoulder joint; F03.90 Unspecified dementia, unspecified severity, without behavioral disturbance, psychotic disturbance, mood disturbance, and anxiety
CPT/HCPCS: 36415; 70450; 70496; 70498; 70551; 71045; 80048; 80061; 82962; 83036; 83735; 84100; 85025; 93005; 93306; 96374; J3490; Q9967; 92610-GN; 97530-GP; 99285-25; G0378

== ENCOUNTER → 2021-05-03 | Outpatient (CLI) | payer MEDICARE ==
[2021-04-09 13:40] VITALS: BP 141/67
[~2021-05-03] MED LIST: AMLO-187 PO; ASPI-886 PO; ATOR40TA59 PO; LOSA25TA54 PO; METO-239 PO
--- NOTE | 2021-05-04 09:41 | RAD ---
MR#: [id number] Date of Study: 05/03/2021 Ordering Physician: CEE SILVESTRE, Referring Physician: CEE SILVESTRE, Tech: Barrett Gomez MBA, RDMS, RVT, RDCS, RTR APPROVED REPORT Patient Location: OUT-PATIENT Indications Uncontrolled HTN Renal Artery Doppler Right Renal Artery Left Renal Arter y Proximal 81.0/17.0 cm/secProximal 151.0/32.0 cm/sec Mid 180.0/35.0 cm/secMid 90.0/20.0 cm/sec Distal 112.0/27.0 cm/secDistal 94.0/23.0 cm/sec Renal/Aorta Ratio 1.20Renal/Aorta Ratio 1.00 Prox. Resistive Index 0.79Prox. Resistive Index 0.79 Mid Resistive Index 0.81Mid Resistive Index 0.78 Distal Resistive Index 0.76Distal Resistive Index 0.76 Rt. Segmental A. 51.0/17.0 cm/secLt. Segmental A. 46.0/12.0 cm/sec Renal Measurements RightLeft Kidney Maoive94.4 cm cmKidney Xoihmt45.3 cm cm Right Additional FindingsLeft Additional Findings Aortic Doppler VelocityWaveform Mid. Aorta 150.0 cm/sec Findings Grayscale images of the abdominal aorta showed mild diffuse atherosclerosis without any evidence of a neurysm. Spectral waveform and color duplex analysis was within normal limits without any evidence of stenosis. Grayscale images of bilateral kidneys was grossly normal. The right kidney measured 10.4 cm and the l eft kidney measured 10.3 cm. Spectral waveform and color duplex analysis showed normal velocities, no rmal resistive indices and normal renal to aortic ratios bilaterally. No evidence of renal artery kylie nosis. Critical Notification Critical Value: No <Conclusion> Renal arterial duplex scan did not show any evidence of renal artery stenosis. Signed by : Cee Silvestre, Electronically Approved : 05/04/2021 09:40:44
== END ==
LOC: US 08:30
PROVIDERS: ATTEND Internal Medicine Cardiovascular Disease
DX: I10 Essential (primary) hypertension (principal); I70.0 Atherosclerosis of aorta
CPT/HCPCS: 93975